=== PATIENT | male | born 1950 | race Caucasian/White ===

== ENCOUNTER 2018-05-04 11:07 | Inpatient (IN) | payer MEDICAID ==
--- NOTE | 2018-05-04 13:46 | ED PDOC ---
Arrival/HPI - General Chief Complaint: Upper Extremity Problem/Injury Time Seen by Provider: 05/04/18 11:31 Historian: Patient - History of Present Illness Narrative History of Present Illness (Text): 05/04/18 11:55 68 year old male, with past medical history of bilateral eye blindness since 14 years old, presents to the Emergency department complaining of left sided chest pain radiating to his left arm associated with shortness of breath since yesterday. Patient informs similar transient episodes for the past 2 months which resolved spontaneously. Patient states symptoms onset are usually with exertion and was brought on yesterday while walking. Reports no CP, L arm pain or SOB at this time. Patient denies any other associated somatic complaints. Patient denies any leg pain or swelling. Patient denies any fevers, chills, headache, dizziness, abdominal pain, nausea, vomiting, diarrhea, back pain, neck pain, or any other complaints. Patient admits to smoking cigarettes. PMD: NONE Time/Duration: 24 hours Symptom Onset: Gradual Symptom Course: Unchanged Quality: Aching Activities at Onset: Light Context: Walking Past Medical History - Provider Review Nursing Documentation Reviewed: Yes - Infectious Disease Hx of Infectious Diseases: None Family/Social History - Physician Review Nursing Documentation Reviewed: Yes Family/Social History: Unknown Family HX Allergies/Home Meds Allergies/Adverse Reactions: Allergies No Known Allergies Allergy (Verified 05/04/18 11:31) Home Medications: Home Meds Medication Instructions Recorded Confirmed No Known Home Med 05/04/18 05/04/18 Review of Systems - Physician Review All systems were reviewed & negative as marked: Yes - Review of Systems Constitutional: absent: Fevers Respiratory: SOB Cardiovascular: Chest Pain. absent: Edema Gastrointestinal: absent: Abdominal Pain, Diarrhea, Nausea, Vomiting Musculoskeletal: absent: Back Pain, Neck Pain Skin: absent: Rash Neurological: absent: Headache, Dizziness Psychiatric: absent: Anxiety, Depression Physical Exam Vital Signs Reviewed: Yes Vital Signs Temp Pulse Resp BP Pulse Ox 05/04/18 11:34 98.3 F 109 H 18 173/104 H 100 Temperature: Afebrile Blood Pressure: Hypertensive Pulse: Tachycardic Respiratory Rate: Normal Appearance: Positive for: Well-Appearing, Non-Toxic, Comfortable Pain Distress: None Mental Status: Positive for: Alert and Oriented X 3 - Systems Exam Head: Present: Atraumatic, Normocephalic Neck: Present: Normal Range of Motion Respiratory/Chest: Present: Clear to Auscultation, Good Air Exchange. No: Respiratory Distress, Accessory Muscle Use Cardiovascular: Present: Regular Rate and Rhythm, Normal S1, S2. No: Murmurs Abdomen: No: Tenderness, Distention, Peritoneal Signs Back: Present: Normal Inspection Upper Extremity: Present: Normal Inspection. No: Cyanosis, Edema Lower Extremity: Present: Normal Inspection. No: Edema Neurological: Present: GCS=15, Speech Normal Skin: Present: Warm, Dry, Normal Color. No: Rashes Psychiatric: Present: Alert, Oriented x 3, Normal Insight, Normal Concentration Medical Decision Making ED Course and Treatment: 05/04/18 11:55 Impression: 68 year old male presents to the Emergency department complaining of chest pain and shortness of breath. Plan: -- EKG -- Labs -- Chest X-ray -- Aspirin -- Reassess and disposition Prior Visits: Notes and results from previous visits were reviewed. Progress Notes: CXR : NAD, as read by LIZETH EKG: sinus tachycardia at 117 bpm, (-) acute ST changes, as read by LIZETH. Labs reviewed : K 3.4, trop 0.04, bnp 127 On reevaluation, patient reports no CP or SOB. Repeat VS P 100 BP 157/90 R 16 O2sat 98%RA. On exam, patient remains awake alert and oriented 3 in no acute distress. Diagnostic results d/w the patient and his family member. Notified of need for further observation for repeat troponin and cardiac consult, which the patient agrees to. 15:10 Case d/w Dr. Zaragoza, agrees with plan for observation to remote [facility] for CP r/o ACS. - RAD Interpretation Radiology Orders: 05/04/18 11:56 CHEST PORTABLE [RAD] Stat - Medication Orders Current Medication Orders: Discontinued Medications Aspirin (Aspirin Chewable) 81 mg PO STAT STA Stop: 05/04/18 11:56 Last Admin: 05/04/18 13:32 Dose: 81 mg - PA / MARBLEIZER / Resident Statement MD/DO has reviewed & agrees with the documentation as recorded. - Scribe Statement The provider has reviewed the documentation as recorded by the Scribe Aubrie Terry. All medical record entries made by the Scribe were at my direction and personally dictated by me. I have reviewed the chart and agree that the record accurately reflects my personal performance of the history, physical exam, medical decision making, and the department course for this patient. I have also personally directed, reviewed, and agree with the discharge instructions and disposition. Disposition/Present on Arrival - Present on Arrival Any Indicators Present on Arrival: No History of DVT/PE: No History of Uncontrolled Diabetes: No Urinary Catheter: No History of Decub. Ulcer: No History Surgical Site Infection Following: None - Disposition Have Diagnosis and Disposition been Completed?: Yes Diagnosis: Chest pain Disposition: HOSPITALIZED Disposition Time: 15:10 Patient Plan: Observation (to remote tele) Condition: STABLE
[2018-05-04 14:05] LABS: BASO # 0.03 K/mm3 (0.0-2.0); BASO % 0.7 % (0.0-3.0); EOS # 0.1 (0.0-0.7); EOS % 2.3 % (1.5-5.0); GRAN # 2.37 (1.4-6.5); GRAN % 54.6 % (50.0-68.0); HEMOGLOBIN 13.4 g/dL (14.0-18.0); LYMPH # 1.3 (1.2-3.4); LYMPH % 29.5 % (22.0-35.0); MEAN CELL VOLUME 70.7 fl (80.0-105.0); MEAN CORPUSCULAR HEMOGLOBIN 23.1 pg (25.0-35.0); MEAN CORPUSCULAR HGB CONC 32.6 g/dl (31.0-37.0); MEAN PLATELET VOLUME 10.4 fl (7.0-11.0); MONO # 0.6 (0.1-0.6); MONO % 12.9 % (1.0-6.0); RBC 5.81 10^6/uL (3.5-6.1); RED CELL DISTRIBUTION WIDTH 14.5 % (11.5-14.5); WHITE BLOOD COUNT 4.3 10^3/uL (4.5-11.0)
[2018-05-04 14:14] LABS: INR 1.01; PARTIAL THROMBOPLASTIN TIME 31.8 Seconds (25.1-36.5); PROTHROMBIN TIME 11.6 SECONDS (9.4-12.5)
[2018-05-04 14:18] LABS: ALB/GLOB RATIO 1.3 (1.1-1.8); ALBUMIN 4.4 g/dL (3.0-4.8); ALT/SGPT 53 U/L (7-56); AST/SGOT 40 U/L (17-59); BLOOD UREA NITROGEN 13 mg/dL (7-21); CALCIUM 9.4 mg/dL (8.4-10.5); GFR NON-AFRICAN AMERICAN > 60
--- NOTE | 2018-05-04 14:29 | RAD ---
Date of service: 05/04/2018 HISTORY: CP COMPARISON: No prior. FINDINGS: LUNGS: No active pulmonary disease. PLEURA: No significant pleural effusion identified, no pneumothorax apparent. CARDIOVASCULAR: No aortic atherosclerotic calcification present. Normal cardiac size. No pulmonary vascular congestion. OSSEOUS STRUCTURES: No significant abnormalities. VISUALIZED UPPER ABDOMEN: Normal. OTHER FINDINGS: None. IMPRESSION: No active disease.
[2018-05-04 14:32] LABS: B-TYPE NATRIURETIC PEPTIDE 127 pg/mL (0-450); TROPONIN I 0.04 ng/mL
[2018-05-04 14:34] LABS: CK-MB 2.8 ng/mL (0.0-3.6)
[2018-05-04] MEDS ORDERED: Potassium Chloride 40 mEq/30 ml LIQ UD PO STA (15:47)
[2018-05-04] MEDS ORDERED: Metoprolol 1 mg/ml Inj IVP PRN (16:40)
[2018-05-04] MEDS ORDERED: Levalbuterol 0.63 MG/3 ML Inhal Soln UD IH PRN (16:44)
--- NOTE | 2018-05-04 17:00 | CP.PCM.HP ---
<Armando Pacheco - Last Filed: 05/04/18 16:45> History of Present Illness - History of Present Illness History of Present Illness: Internal Medicine History and Physical (Hospitalist Service) CC: Unstable Angina HPI: Mr. Sanchez is a 68 year old kiswahili speaking male with a past medical history of bilateral blindness who presents with a chief complaint of chest pain. Patient's son at bedside to assist with HPI/ROS information. He reports that for the past 3-4 months the patient has been experiencing left sided chest pressure with radiation to the left arm with associated SOB after walking two blocks. This pressure is rated 5/10 in intensity and was self limited to 5-6 minutes with rest. Patient also reports that herbal teas and as needed omeprazole have mildly relieved the pain during this time but without lasting effect. Patient denies ever having experienced this in the past. Over the course of the past 5-6 days, however, the patient has been experiencing the pain while at rest as well and also reports that the pain is longer in duration without change in intensity or quality. Of note, patient has never been seen by a doctor, had any surgical procedures or ever been hospitalized in the past. He otherwise denies any recent travel (last flight 6 months ago), recent illness, fevers, chills, headache, neck pain/stiffness, dysphagia, palpitations, lower extremity edema, cough, s putum production, hemoptysis, wheezing, abdominal pain, dyspepsia, N/V/D/C, melena, hematochezia, changes in urine output, skin changes or any numbness/tingling/weakness of any extremity. In the ED, patient was found to have no active disease on chest x-ray but to have an indeterminate troponin at 0.04 as well as sinus tachycardia with non- specific ST-T segment changes on EKG. PMH: Bilateral complete blindness (patient reports he had "water in his eye" as a child that they couldn't take out) PSH: Denies Family History: Denies any cardiac history, sudden , CAD, HLD, or DM2 in his family Social History: Current some days smoker of 5-6 cigarettes/day with approximately 10 year smoking history; Denies any alcohol or illicit drug abuse; Splits his time between [place] and [place] every 6 months with next flight return to [place] on 05/13/18; Independent with ADL's Allergies: NKDA Home Medications: None Present on Admission - Present on Admission Any Indicators Present on Admission: No Review of Systems - Review of Systems Review of Systems: As stated in HPI, otherwise negative Past Patient History - Infectious Disease Hx of Infectious Diseases: None - Past Social History Smoking Status: Never Smoked - CARDIAC Hx Cardiac Disorders: No - PULMONARY Hx Respiratory Disorders: No - NEUROLOGICAL Hx Neurological Disorder: No - HEENT Hx HEENT Problems: Yes Hx Blind: Yes - RENAL Hx Chronic Kidney Disease: No - ENDOCRINE/METABOLIC Hx Endocrine Disorders: No - HEMATOLOGICAL/ONCOLOGICAL Hx Blood Disorders: No - MUSCULOSKELETAL/RHEUMATOLOGICAL Hx Musculoskeletal Disorders: No - GASTROINTESTINAL Hx Gastrointestinal Disorders: No - PSYCHIATRIC Hx Psychophysiologic Disorder: No Hx Substance Use: No Meds Allergies/Adverse Reactions: Allergies Allergy/AdvReac Type Severity Reaction Status Date / Time No Known Allergies Allergy Verified 05/04/18 11:31 Physical Exam - Constitutional Appears: Non-toxic, No Acute Distress - Head Exam Head Exam: ATRAUMATIC, NORMOCEPHALIC - Eye Exam Eye Exam: absent: EOMI, Normal appearance, PERRL Pupil Exam: absent: NORMAL ACCOMODATION, PERRL Additional comments: Noted history of blindness; EOM testing unobtainable; Superior gaze with only sclera visible at rest - ENT Exam ENT Exam: Mucous Membranes Moist, Normal External Ear Exam, Normal Oropharynx - Neck Exam Neck exam: Positive for: Full Rom, Normal Inspection. Negative for: Lymphadenopathy, Meningismus, Tenderness, Thyromegaly - Respiratory Exam Respiratory Exam: Clear to Auscultation Bilateral, NORMAL BREATHING PATTERN. absent: Accessory Muscle Use, Decreased Breath Sounds, Rales, Rhonchi, Wheezes, Respiratory Distress - Cardiovascular Exam Cardiovascular Exam: Tachycardia, REGULAR RHYTHM, +S1, +S2. absent: Bradycardia, Clicks, Diastolic murmur, Gallop, Irregular Rhythm, JVD, RRR, Rubs, +S4, Systolic Murmur - GI/Abdominal Exam GI & Abdominal Exam: Normal Bowel Sounds, Soft. absent: Tenderness - Extremities Exam Extremities exam: Positive for: full ROM, normal capillary refill, normal inspection, pedal edema (Trace pitting edema bilaterally), pedal pulses present. Negative for: calf tenderness, joint swelling, tenderness - Neurological Exam Neurological exam: Alert, Oriented x3 - Psychiatric Exam Psychiatric exam: Normal Affect, Normal Mood - Skin Skin Exam: Dry, Intact, Warm Results - Vital Signs Recent Vital Signs: Last Vital Signs Temp 98.3 F 05/04/18 11:34 Pulse 100 H 05/04/18 13:58 Resp 16 05/04/18 13:58 BP 157/90 H 05/04/18 13:58 Pulse Ox 98 05/04/18 13:58 - Labs Result Diagrams: 05/04/18 13:30 05/04/18 13:30 Labs: Laboratory Results - last 24 hr 05/04/18 05/04/18 05/04/18 13:30 13:30 13:30 WBC 4.3 L RBC 5.81 Hgb 13.4 L Hct 41.1 L MCV 70.7 L MCH 23.1 L MCHC 32.6 RDW 14.5 Plt Count 179 MPV 10.4 Gran % 54.6 Lymph % (Auto) 29.5 [place] % (Auto) 12.9 H Eos % (Auto) 2.3 Baso % (Auto) 0.7 Gran # 2.37 Lymph # (Auto) 1.3 [place] # (Auto) 0.6 Eos # (Auto) 0.1 Baso # (Auto) 0.03 PT 11.6 INR 1.01 APTT 31.8 Sodium 140 Potassium 3.4 L Chloride 104 Carbon Dioxide 26 Anion Gap 14 BUN 13 Creatinine 0.9 Est GFR ( Amer) > 60 Est GFR (Non-Af Amer) > 60 Random Glucose 120 H Calcium 9.4 Magnesium 2.1 Total Bilirubin 0.3 AST 40 ALT 53 Alkaline Phosphatase 85 Lactate Dehydrogenase 522 Total Creatine Kinase 393 H CK-MB (CK-2) 2.8 CK-MB (CK-2) % Cancelled Troponin I 0.04 NT-Pro-B Natriuret Pep 127 Total Protein 7.8 Albumin 4.4 Globulin 3.4 Albumin/Globulin Ratio 1.3 - EKG Data EKG Interpreted by: Myself EKG shows normal: Sinus rhythm Rate: Tachycardia Assessment & Plan - Assessment and Plan (Free Text) Assessment: 68 year old kiswahili speaking male with a past medical history of bilateral blindness who presents with a chief complaint of chest pain. In the ED, patient was found to have no active disease on chest x-ray but to have an indeterminate troponin at 0.04 as well as sinus tachycardia with non-specific ST-T segment changes on EKG. He will be admitted to remote telemetry for observation, cardiac risk stratification and streets and buildings decorator evaluation. Plan: 1. Unstable Angina -Chest X-ray showed no active disease -EKG showed sinus tachycardia with non-specific ST segment changes -Initial troponin indeterminate at 0.04; Q8 serial cardiac iso's pending -Given ASA 81mg in ED -Ibuprofen 400mg PO Q6 PRN for pain control -Lipid panel and Hemoglobin A1c for risk stratification pending -Cardiology consulted, all recommendations appreciated 2. HTN -Lopressor 5mg IVP Q6 PRN for systolic BP greater than 160mmHg 3. Hypokalemia -Potassium at 3.4 in ED -Replenished with KCl 40meq PO -Continue to monitor with daily BMP's GI Prophylaxis: Protonix DVT Prophylaxis: Lovenox Diet: Heart Healthy Code Status: Full code Status: Observation Location: Remote Telemetry Patient seen and case discussed with attending, Dr. Zaragoza. Armando Pacheco PGY2 - Date & Time Date: 05/04/18 Time: 17:00 <Larry Zaragoza - Last Filed: 05/04/18 18:07> Results - Vital Signs Recent Vital Signs: Last Vital Signs Temp 98.3 F 05/04/18 11:34 Pulse 100 H 05/04/18 13:58 Resp 16 05/04/18 13:58 BP 157/90 H 05/04/18 13:58 Pulse Ox 98 05/04/18 13:58 - Labs Result Diagrams: 05/04/18 13:30 05/04/18 13:30 Labs: Laboratory Results - last 24 hr 05/04/18 05/04/18 05/04/18 13:30 13:30 13:30 WBC 4.3 L RBC 5.81 Hgb 13.4 L Hct 41.1 L MCV 70.7 L MCH 23.1 L MCHC 32.6 RDW 14.5 Plt Count 179 MPV 10.4 Gran % 54.6 Lymph % (Auto) 29.5 [place] % (Auto) 12.9 H Eos % (Auto) 2.3 Baso % (Auto) 0.7 Gran # 2.37 Lymph # (Auto) 1.3 [place] # (Auto) 0.6 Eos # (Auto) 0.1 Baso # (Auto) 0.03 PT 11.6 INR 1.01 APTT 31.8 Sodium 140 Potassium 3.4 L Chloride 104 Carbon Dioxide 26 Anion Gap 14 BUN 13 Creatinine 0.9 Est GFR ( Amer) > 60 Est GFR (Non-Af Amer) > 60 Random Glucose 120 H Calcium 9.4 Magnesium 2.1 Total Bilirubin 0.3 AST 40 ALT 53 Alkaline Phosphatase 85 Lactate Dehydrogenase 522 Total Creatine Kinase 393 H CK-MB (CK-2) 2.8 CK-MB (CK-2) % Cancelled Troponin I 0.04 NT-Pro-B Natriuret Pep 127 Total Protein 7.8 Albumin 4.4 Globulin 3.4 Albumin/Globulin Ratio 1.3 Attending/Attestation - Attestation I have personally seen and examined this patient.: Yes I have fully participated in the care of the patient.: Yes I have reviewed all pertinent clinical information: Yes Notes (Text): 05/04/18 18:01 68 year old male with past medical history of bilateral blindness and active tobaccco use who presents with complaint of left sided chest pain. In ER he was found to be hypertensive and tachycardic. Initial troponin is indeterminate at 0.04. EKG shows sinus tachycardia with nonspecific ST changes. Will admit to telemetry unit to rule out ACS. Serial cardiac enzymes are ordered. Cardiology evaluation is requested. Lipid panel ordered for AM. Will start aspirin and lopressor. Will replete and repeat potassium. Counselled on smoking cessation. Larry Zaragoza MD Hospitalist.
--- NOTE | 2018-05-04 17:09 | CARD ---
APPROVED REPORT Date of service: 05/04/2018 EKG Measurement Heart [id number] <Conclusion> Sinus tachycardia Nonspecific ST abnormality Abnormal ECG
[2018-05-04 21:11] VITALS: BMI 25.7
[2018-05-04 22:01] LABS: TROPONIN I 0.05 ng/mL
[2018-05-04 22:02] LABS: CK-MB 2.7 ng/mL (0.0-3.6)
[2018-05-05 04:37] LABS: HEMOGLOBIN 13.1 g/dL (14.0-18.0); MEAN CELL VOLUME 70.9 fl (80.0-105.0); MEAN CORPUSCULAR HEMOGLOBIN 23.3 pg (25.0-35.0); MEAN CORPUSCULAR HGB CONC 32.8 g/dl (31.0-37.0); MEAN PLATELET VOLUME 10.6 fl (7.0-11.0); RBC 5.63 10^6/uL (3.5-6.1); RED CELL DISTRIBUTION WIDTH 14.7 % (11.5-14.5); WHITE BLOOD COUNT 3.8 10^3/uL (4.5-11.0)
[2018-05-05 04:45] LABS: LDL CHOLESTEROL 145 mg/dL (0-129)
[2018-05-05 04:46] LABS: TROPONIN I 0.06 ng/mL
[2018-05-05 04:48] LABS: BLOOD UREA NITROGEN 15 mg/dL (7-21); CALCIUM 8.9 mg/dL (8.4-10.5); GFR NON-AFRICAN AMERICAN > 60; HDL CHOLESTEROL 30 mg/dL (29-60)
[2018-05-05 04:56] LABS: CK-MB 2.6 ng/mL (0.0-3.6)
[2018-05-05] MEDS: Pantoprazole 40 mg EC Tab PO SCH (05:13)
[2018-05-05] MEDS ORDERED: Enoxaparin 40 mg Syringe SC SCH (10:00)
--- NOTE | 2018-05-05 16:08 | CP.PCM.PN ---
<Lamont Hahn - Last Filed: 05/05/18 16:46> Subjective - Date & Time of Evaluation Date of Evaluation: 05/05/18 Time of Evaluation: 07:30 - Subjective Subjective: PGY-1 Medicine Progress Note for Dr. Zaragoza Patient seen and examined at bedside this AM, resting comfortably and in no acute distress. No acute overnight events reported. Patient does not complain of chest pain this morning, no palpitations, no headaches, no dizziness, no changes in vision, no n/v/d/c. ROS otherwise negative. Objective - Vital Signs/Intake and Output Vital Signs (last 24 hours): Temp Pulse Resp BP Pulse Ox 97.4 F L 92 H 20 156/98 H 97 05/05/18 08:40 05/05/18 14:00 05/05/18 08:40 05/05/18 08:48 05/05/18 08:40 - Medications Medications: Current Medications Aspirin (Ecotrin) 81 mg PO 0800 [facility] Last Admin: 05/05/18 08:48 Dose: 81 mg Atorvastatin Calcium (Lipitor) 10 mg PO DIN [facility] Clopidogrel Bisulfate (Plavix) 75 mg PO DAILY [facility] Stop: 05/06/18 12:00 Enoxaparin Sodium (Lovenox) 40 mg SC DAILY [facility]; Protocol Last Admin: 05/05/18 09:09 Dose: 40 mg Ibuprofen (Motrin Tab) 400 mg PO Q6H PRN PRN Reason: Pain, Mild (1-3) Metoprolol Tartrate (Lopressor) 5 mg IVP Q6 PRN PRN Reason: Systolic Blood Pressure Metoprolol Tartrate (Lopressor) 25 mg PO 0800,1800 [facility] Last Admin: 05/05/18 08:48 Dose: 25 mg Pantoprazole Sodium (Protonix Ec Tab) 40 mg PO 0600 [facility] Last Admin: 05/05/18 05:13 Dose: 40 mg - Labs Labs: 05/05/18 04:05 05/05/18 04:05 PT 11.6 SECONDS (9.4-12.5) 05/04/18 13:30 INR 1.01 05/04/18 13:30 APTT 31.8 Seconds (25.1-36.5) 05/04/18 13:30 - Constitutional Appears: Non-toxic, No Acute Distress - Head Exam Head Exam: ATRAUMATIC, NORMAL INSPECTION, NORMOCEPHALIC - Eye Exam Additional comments: patient has b/l eye blindness - ENT Exam ENT Exam: Mucous Membranes Moist, Normal Exam - Neck Exam Neck Exam: Full ROM, Normal Inspection - Respiratory Exam Respiratory Exam: Clear to Ausculation Bilateral, NORMAL BREATHING PATTERN. absent: Accessory Muscle Use, Rales, Rhonchi, Wheezes, Respiratory Distress, Stridor - Cardiovascular Exam Cardiovascular Exam: REGULAR RHYTHM, +S1, +S2 - GI/Abdominal Exam GI & Abdominal Exam: Soft, Normal Bowel Sounds. absent: Distended, Firm, Guarding, Rigid, Tenderness, Organomegaly, Rebound - Extremities Exam Extremities Exam: Full ROM, Normal Capillary Refill, Normal Inspection. absent: Calf Tenderness, Pedal Edema, Tenderness - Back Exam Back Exam: NORMAL INSPECTION - Neurological Exam Neurological Exam: Alert, Awake, Oriented x3 - Psychiatric Exam Psychiatric exam: Normal Affect, Normal Mood - Skin Skin Exam: Dry, Intact, Normal Color, Warm Assessment and Plan - Assessment and Plan (Free Text) Assessment: 68 year old turkish speaking male with a past medical history of bilateral blindness who presents with a chief complaint of chest pain. In the ED, patient was found to have no active disease on chest x-ray but to have an indeterminate troponin at 0.04 as well as sinus tachycardia with non-specific ST-T segment changes on EKG. Admitted for observation, cardiac risk stratification and psych np evaluation. Plan: Unstable Angina -trops x3 negative -CXR: no active disease -EKG on admission: sinus tachycardia with non-specific ST segment changes -A1C: 6.2 -Cardiology recs (Dr. Paredes) appreciated -Plavix 75 mg PO daily -NPO past midnight for possible procedure -Medications -ASA 81 mg PO daily -Lopressor 25 mg PO BID, 5 mg IVP q6 prn HLD -Lipid panel elevated: TG 255, chol 218, LDL 145 -lipitor 10 mg PO daily HTN -Lopressor 5mg IVP Q6 PRN for systolic BP greater than 160mmHg PPx, Diet, Disposition -GI: Protonix -DVT: Lovenox -Diet: NPO past midnight for possible procedure Case discussed with Dr. Mila Hahn DO , PGY-1 <Larry Zaragoza - Last Filed: 05/05/18 17:43> Objective - Vital Signs/Intake and Output Vital Signs (last 24 hours): Temp Pulse Resp BP Pulse Ox 98 F 91 H 20 150/104 H 98 05/05/18 16:43 05/05/18 16:43 05/05/18 16:43 05/05/18 16:43 05/05/18 16:43 - Medications Medications: Current Medications Aspirin (Ecotrin) 81 mg PO 0800 [facility] Last Admin: 05/05/18 08:48 Dose: 81 mg Atorvastatin Calcium (Lipitor) 10 mg PO DIN [facility] Clopidogrel Bisulfate (Plavix) 75 mg PO DAILY [facility] Stop: 05/06/18 12:00 Enoxaparin Sodium (Lovenox) 40 mg SC DAILY [facility]; Protocol Last Admin: 05/05/18 09:09 Dose: 40 mg Ibuprofen (Motrin Tab) 400 mg PO Q6H PRN PRN Reason: Pain, Mild (1-3) Metoprolol Tartrate (Lopressor) 5 mg IVP Q6 PRN PRN Reason: Systolic Blood Pressure Metoprolol Tartrate (Lopressor) 25 mg PO 0800,1800 [facility] Last Admin: 05/05/18 08:48 Dose: 25 mg Pantoprazole Sodium (Protonix Ec Tab) 40 mg PO 0600 [facility] Last Admin: 05/05/18 05:13 Dose: 40 mg - Labs Labs: 05/05/18 04:05 05/05/18 04:05 PT 11.6 SECONDS (9.4-12.5) 05/04/18 13:30 INR 1.01 05/04/18 13:30 APTT 31.8 Seconds (25.1-36.5) 05/04/18 13:30 Attending/Attestation - Attestation I have personally seen and examined this patient.: Yes I have fully participated in the care of the patient.: Yes I have reviewed all pertinent clinical information, including history, physical exam and plan: Yes Notes (Text): 05/05/18 17:41 68 year old male with past medical history of bilateral blindness and active tobaccco use who presented with complaint of left sided chest pain. Serial cardiac enzymes have been indeterminate. EKG showed sinus tachycardia with nonspecific ST changes. Patient is on aspirin, plavix, statin and lopressor. He was seen by cardiology this afternoon and plan is for possible cardiac cath tomorrow. Counselled on smoking cessation. Son is at bedside and questions were answered. Larry Zaragoza MD Hospitalist.
--- NOTE | 2018-05-05 20:04 | CON ---
DATE: 05/05/2018 CARDIOLOGY CONSULTATION HISTORY OF PRESENT ILLNESS: The patient is a 68-year-old male from [place], who presents with several weeks of exertional angina with shortness of breath. The patient is free of cardiac history; however, he is noted to be hypertensive and he is on no medications. In addition, the patient is an excessive smoker and has been smoking for a long time. He denies diabetes mellitus. Denies other medications. PAST MEDICAL HISTORY: Notable for has been blind for a long time. REVIEW OF SYSTEMS: A 14-point review of systems is reviewed in detail. His symptoms are exertional angina and shortness of breath without edema. No previous peptic ulcer disease. No bleeding disorder. No edema in the lower extremities. PHYSICAL EXAMINATION: VITAL SIGNS: Blood pressure 156/98 and heart rates in the 90s. NECK: Negative JVD. LUNGS: Without rales. HEART: S1 and S2. EXTREMITIES: Without edema. LABORATORY DATA: EKG shows normal sinus rhythm with nonspecific ST-T changes. Hemoglobin of 13.1. Chemistries, troponins are 0.05 and 0.06. The glucose is 111. IMPRESSION: 1. Non-ST segment elevation myocardial infarction. 2. Unstable angina. 3. Chronic obstructive pulmonary disease. 4. Dyspnea. 5. Hypertension. PLAN: Given these findings, I had extensive discussion with the patient's family as well as the patient about a high probability for CAD. The patient is already on heparin. We will start aspirin, load with Plavix and schedule for cardiac catheterization in the morning. Risks and benefits were discussed in detail. They are agreeable. Norman Paredes MD
[2018-05-06] MEDS: Pantoprazole 40 mg EC Tab PO SCH (05:24)
[2018-05-06] MEDS ORDERED: Nitroglycerin 2% Ointment Foilpak UD TOP ONE (05:49)
[2018-05-06 06:57] LABS: HEMOGLOBIN 14.1 g/dL (14.0-18.0); MEAN CELL VOLUME 70.4 fl (80.0-105.0); MEAN CORPUSCULAR HEMOGLOBIN 22.8 pg (25.0-35.0); MEAN CORPUSCULAR HGB CONC 32.3 g/dl (31.0-37.0); MEAN PLATELET VOLUME 10.5 fl (7.0-11.0); RBC 6.19 10^6/uL (3.5-6.1); RED CELL DISTRIBUTION WIDTH 14.6 % (11.5-14.5); WHITE BLOOD COUNT 4.9 10^3/uL (4.5-11.0)
[2018-05-06 07:21] VITALS: O2SAT 100
[2018-05-06 07:32] LABS: BLOOD UREA NITROGEN 14 mg/dL (7-21); CALCIUM 9.3 mg/dL (8.4-10.5); GFR NON-AFRICAN AMERICAN > 60
[2018-05-06] MEDS ORDERED: Iodixanol 320 MG/ML 100 ML BOTTLE IV ONE (11:46)
[2018-05-06] MEDS ORDERED: Iodixanol 320 MG/ML 200 ML BOTTLE IV ONE (11:46)
[2018-05-06] MEDS ORDERED: Iohexol 350mgl/ml 50 ML ONE (11:46)
[2018-05-06] MEDS ORDERED: Lidocaine 2% Inj (20ml) ONE (11:46)
[2018-05-06] MEDS ORDERED: Midazolam 2 MG/2 ML VIAL ONE ×2 (12:58→13:03)
[2018-05-06] MEDS ORDERED: Eptifibatide 20 mg/10mL Inj IVP ONE (13:33)
[2018-05-06] MEDS ORDERED: Sodium Chloride 0.9% 1,000 ML IV SCH (14:30)
--- NOTE | 2018-05-06 15:17 | CARDCATH ---
PROCEDURE DATE: 05/06/2018 CARDIAC CATHETERIZATION AND PTCA HISTORY: The patient is a 68-year-old male, who presents with a non-STEMI. The patient is from [place]. He suffers from questionable hypertension, but is a long time smoker. Because of his high probability for CAD, cardiac catheterization was recommended. PROCEDURE: Left heart catheterization with coronary arteriography and left ventriculogram followed by PTCA and stent of two lesions in the LAD. The right femoral artery was cannulated with a 6-Spanish sheath. There were no complications. I performed moderate sedation, which included the presence of an independent trained observer that assisted in monitoring the patient's level of consciousness and physiologic status. After administration of Versed and fentanyl, my intra service time was 45 minutes. The findings on catheterization revealed a left ventricle that contracted normally. Estimated ejection fraction of 60%. His coronary anatomy revealed a right dominant circulation. The RCA revealed diffuse atherosclerosis without critical lesions. The left main artery revealed a 40% stenosis in its proximal portion. The LAD revealed a 99.9% stenosis in the proximal LAD followed by 70% stenosis in the midportion. The circumflex artery revealed atherosclerosis without critical lesions. The patient was started on intravenous Angiomax. PRU measurement found the patient to be resistant to Plavix and the patient was given 2 doses of intravenous Integrilin. A guiding catheter is placed in the ostium of the left main artery. An 0.014 ATW wire was used to cross the LAD critical lesion past the second LAD lesion. A second wire was used to cross the lesion and into the second diagonal vessel. A 2 balloon was utilized to predilate the lesion. This was followed by implantation of a 3.5 x 15 mm drug-eluting stent in the proximal LAD lesion at 14 atmospheres of pressure. A second 2 stent was placed in the LAD past the second diagonal vessel. A second wire was used to dilate the second diagonal lesion. In addition, the wire was used to cross the first diagonal vessel at the place of the first stent and with scientologist of flow into the diagonal vessel. Repeat coronary arteriography revealed an excellent result with no residual stenosis. Angio-Seal was used to close the femoral artery site. The patient tolerated the procedure well. In summary, the procedure was successful PTCA and stent of a 99% proximal LAD stenosis. PTCA and stent of a mid LAD stenosis both with drug-eluting stents. PCI of the second diagonal and first diagonal vessels. Given these findings, the patient will need to remain on aspirin indefinitely and Effient for at least a year and undergo a strict cardiac risk reduction program. I have discussed with the patient's family about his need to stop smoking. Norman Paredes MD
--- NOTE | 2018-05-06 17:50 | CARD ---
APPROVED REPORT Date of service: 05/06/2018 EKG Measurement Heart [id number] <Conclusion> Normal sinus rhythm Normal ECG
--- NOTE | 2018-05-06 20:03 | CP.PCM.PN ---
<Hardik Richard - Last Filed: 05/06/18 20:00> Subjective - Date & Time of Evaluation Date of Evaluation: 05/06/18 Time of Evaluation: 07:00 - Subjective Subjective: Hardik Richard PGY1 Medicine Progress Note for Dr. Zaragoza Patient was seen and examined at bedside this morning. No acute overnight events. Vital signs are stable. Patient does not complain of blurry or changes in vision, cp, shortness of breath, abdominal pain, n/v/d. Patient going for cardiac cath after interview. A full 12 point ROS was conducted and unremarkable except as stated above Objective - Vital Signs/Intake and Output Vital Signs (last 24 hours): Temp Pulse Resp BP Pulse Ox 97.4 F L 82 18 136/92 H 100 05/06/18 17:49 05/06/18 18:37 05/06/18 18:37 05/06/18 18:37 05/06/18 06:00 Intake and Output: 05/06/18 05/07/18 18:59 06:59 Intake Total 0 550 Output Total 0 Balance 0 550 - Medications Medications: Current Medications Aspirin (Ecotrin) 81 mg PO 0800 [facility] Last Admin: 05/06/18 08:56 Dose: 81 mg Atorvastatin Calcium (Lipitor) 40 mg PO DIN [facility] Last Admin: 05/06/18 18:34 Dose: 40 mg Metoprolol Tartrate (Lopressor) 25 mg PO 0800,1800 [facility] Last Admin: 05/06/18 18:34 Dose: 25 mg Prasugrel (Effient) 10 mg PO DAILY [facility] - Labs Labs: 05/06/18 05:20 05/06/18 05:20 PT 11.6 SECONDS (9.4-12.5) 05/04/18 13:30 INR 1.01 05/04/18 13:30 APTT 31.8 Seconds (25.1-36.5) 05/04/18 13:30 - Constitutional Appears: Well - Head Exam Head Exam: ATRAUMATIC, NORMOCEPHALIC - Neck Exam Neck Exam: Full ROM, Normal Inspection. absent: Lymphadenopathy - Respiratory Exam Respiratory Exam: Clear to Ausculation Bilateral, NORMAL BREATHING PATTERN. absent: Rales, Rhonchi, Wheezes - Cardiovascular Exam Cardiovascular Exam: REGULAR RHYTHM, +S1, +S2. absent: Murmur - GI/Abdominal Exam GI & Abdominal Exam: Soft, Normal Bowel Sounds. absent: Tenderness - Neurological Exam Neurological Exam: Alert, Awake, Oriented x3 Neuro motor strength exam: Left Upper Extremity: 5, Right Upper Extremity: 5, Left Lower Extremity: 5, Right Lower Extremity: 5 - Skin Skin Exam: Dry, Intact, Normal Color, Warm Assessment and Plan - Assessment and Plan (Free Text) Assessment: 68 year old danish speaking male with a past medical history of bilateral blindness who presents with a chief complaint of chest pain. In the ED, patient was found to have no active disease on chest x-ray but to have an indeterminate troponin at 0.04 as well as sinus tachycardia with non-specific ST-T segment changes on EKG. Cardiology was consulted. Patient went for cardiac cath today. Plan: Newly Diagnosed CAD - s/p cardiac cath with stent placement - cardiac cath (05/06): showed 99% proximal LAD stenosis, stent placed. Stent also placed in mid-LAD. Drug eluting stents. - Cardiology recs appreciated. Aspirin 81 mg daily and Effient 10 mg daily for at least 1 year (Dual anticoagulation for GRACIELA). - Normal postcath protocol - monitor vital signs, monitor for bleed at cath site, monitor distal pulses - Counseled on smoking cessation - HHD - trops x3 negative - CXR: no active disease - EKG on admission: sinus tachycardia with non-specific ST segment changes - A1C: 6.2 HLD - Lipitor 40mg - Lipid panel elevated: TG 255, chol 218, LDL 145 HTN -Lopressor 25mg IVP BID Dispo: Patient will be monitored on tele s/p cardiac cath indicating newly diagnosed CAD. Case was discussed and reviewed with Attending Physician, Dr. Zaragoza. <Larry Zaragoza - Last Filed: 05/07/18 06:36> Objective - Vital Signs/Intake and Output Vital Signs (last 24 hours): Temp Pulse Resp BP Pulse Ox 97.9 F 82 18 134/74 100 05/07/18 06:00 05/07/18 06:00 05/07/18 06:00 05/07/18 06:00 05/06/18 06:00 Intake and Output: 05/06/18 05/07/18 18:59 06:59 Intake Total 0 550 Output Total 0 700 Balance 0 -150 - Medications Medications: Current Medications Aspirin (Ecotrin) 81 mg PO 0800 [facility] Last Admin: 05/06/18 08:56 Dose: 81 mg Atorvastatin Calcium (Lipitor) 40 mg PO DIN [facility] Last Admin: 05/06/18 18:34 Dose: 40 mg Metoprolol Tartrate (Lopressor) 25 mg PO 0800,1800 [facility] Last Admin: 05/06/18 18:34 Dose: 25 mg Prasugrel (Effient) 10 mg PO DAILY [facility] - Labs Labs: 05/06/18 05:20 05/06/18 05:20 PT 11.6 SECONDS (9.4-12.5) 05/04/18 13:30 INR 1.01 05/04/18 13:30 APTT 31.8 Seconds (25.1-36.5) 05/04/18 13:30 Attending/Attestation - Attestation I have personally seen and examined this patient.: Yes I have fully participated in the care of the patient.: Yes I have reviewed all pertinent clinical information, including history, physical exam and plan: Yes Notes (Text): 05/06/18 68 year old male with past medical history of bilateral blindness and active tobaccco use who presented with complaint of left sided chest pain. Serial cardiac enzymes have been indeterminate. EKG showed sinus tachycardia with nonspecific ST changes. Patient was started on aspirin, plavix, statin and lopressor. Cardiology evaluation was appreciated and patient underwent cardiac cath today with findings of 99% stenosis of LAD; 2 GARCIELA were placed and patient is started on effient. Case was discussed with Dr. Paredes. Will observe on telemetry unit tonight. Possible d/c plan tomorrow if stable. Counselled on smoking cessation. Larry Zaragoza MD Hospitalist.
[2018-05-07 06:22] VITALS: TEMP 97.9
[2018-05-07 07:21] LABS: BASO # 0.01 K/mm3 (0.0-2.0); BASO % 0.2 % (0.0-3.0); EOS # 0.2 (0.0-0.7); EOS % 2.7 % (1.5-5.0); GRAN # 3.25 (1.4-6.5); GRAN % 58.4 % (50.0-68.0); HEMOGLOBIN 12.9 g/dL (14.0-18.0); LYMPH # 1.5 (1.2-3.4); LYMPH % 26.3 % (22.0-35.0); MEAN CELL VOLUME 70.6 fl (80.0-105.0); MEAN CORPUSCULAR HEMOGLOBIN 22.7 pg (25.0-35.0); MEAN CORPUSCULAR HGB CONC 32.2 g/dl (31.0-37.0); MEAN PLATELET VOLUME 10.4 fl (7.0-11.0); MONO # 0.7 (0.1-0.6); MONO % 12.4 % (1.0-6.0); RBC 5.68 10^6/uL (3.5-6.1); RED CELL DISTRIBUTION WIDTH 14.6 % (11.5-14.5); WHITE BLOOD COUNT 5.6 10^3/uL (4.5-11.0)
[2018-05-07 07:41] LABS: BLOOD UREA NITROGEN 19 mg/dL (7-21); CALCIUM 9.1 mg/dL (8.4-10.5); GFR NON-AFRICAN AMERICAN > 60
--- NOTE | 2018-05-07 11:07 | PN ---
DATE: 05/07/2018 CARDIOLOGY FOLLOWUP SUBJECTIVE: The patient is chest pain free. PHYSICAL EXAMINATION: VITAL SIGNS: Stable. NECK: Negative JVD. LUNGS: Without rales. HEART: Reveals S1 and S2. EXTREMITIES: Without edema. LABORATORY DATA: Unremarkable. IMPRESSION: 1. Stable post percutaneous transluminal coronary angioplasty and stent of 99% left anterior descending. 2. Plavix resistance. 3. Chronic obstructive pulmonary disease. 4. Hypercholesterolemia. PLAN: Given these findings, the patient is stable for discharge. He will need to be on Effient for at least a year as well as baby aspirin and undergo a cardiac risk reduction program. Norman Paredes MD
[2018-05-07 11:58] VITALS: BP 129/77; PULSE 80; RESP 20
--- NOTE | 2018-05-07 15:00 | CP.PCM.DIS ---
<Lamont Hahn - Last Filed: 05/07/18 14:57> Provider - Provider Date of Admission: 05/05/18 15:56 Attending physician: Larry Zaragoza MD Time Spent in preparation of Discharge (in minutes): 40 Hospital Course - Lab Results Lab Results: Most Recent Lab Values WBC 5.6 10^3/uL (4.5-11.0) 05/07/18 07:00 RBC 5.68 10^6/uL (3.5-6.1) 05/07/18 07:00 Hgb 12.9 g/dL (14.0-18.0) L 05/07/18 07:00 Hct 40.1 % (42.0-52.0) L 05/07/18 07:00 MCV 70.6 fl (80.0-105.0) L 05/07/18 07:00 MCH 22.7 pg (25.0-35.0) L 05/07/18 07:00 MCHC 32.2 g/dl (31.0-37.0) 05/07/18 07:00 RDW 14.6 % (11.5-14.5) H 05/07/18 07:00 Plt Count 160 10^3/uL (120.0-450.0) 05/07/18 07:00 MPV 10.4 fl (7.0-11.0) 05/07/18 07:00 Gran % 58.4 % (50.0-68.0) 05/07/18 07:00 Lymph % (Auto) 26.3 % (22.0-35.0) 05/07/18 07:00 Marshall % (Auto) 12.4 % (1.0-6.0) H 05/07/18 07:00 Eos % (Auto) 2.7 % (1.5-5.0) 05/07/18 07:00 Baso % (Auto) 0.2 % (0.0-3.0) 05/07/18 07:00 Gran # 3.25 (1.4-6.5) 05/07/18 07:00 Lymph # (Auto) 1.5 (1.2-3.4) 05/07/18 07:00 Marshall # (Auto) 0.7 (0.1-0.6) H 05/07/18 07:00 Eos # (Auto) 0.2 (0.0-0.7) 05/07/18 07:00 Baso # (Auto) 0.01 K/mm3 (0.0-2.0) 05/07/18 07:00 PT 11.6 SECONDS (9.4-12.5) 05/04/18 13:30 INR 1.01 05/04/18 13:30 APTT 31.8 Seconds (25.1-36.5) 05/04/18 13:30 Sodium 136 mmol/L (132-148) 05/07/18 07:00 Potassium 4.1 mmol/L (3.6-5.0) 05/07/18 07:00 Chloride 105 mmol/L (98-107) 05/07/18 07:00 Carbon Dioxide 23 mmol/L (21-33) 05/07/18 07:00 Anion Gap 12 (10-20) 05/07/18 07:00 BUN 19 mg/dL (7-21) 05/07/18 07:00 Creatinine 1.0 mg/dl (0.8-1.5) 05/07/18 07:00 Est GFR ( Amer) > 60 05/07/18 07:00 Est GFR (Non-Af Amer) > 60 05/07/18 07:00 POC Glucose (mg/dL) 128 mg/dL (65-110) H 05/07/18 11:38 Random Glucose 111 mg/dL (70-110) H 05/07/18 07:00 Hemoglobin A1c 6.2 % (4.2-6.5) 05/04/18 21:25 Calcium 9.1 mg/dL (8.4-10.5) 05/07/18 07:00 Magnesium 2.1 mg/dL (1.7-2.2) 05/04/18 13:30 Total Bilirubin 0.3 mg/dL (0.2-1.3) 05/04/18 13:30 AST 40 U/L (17-59) 05/04/18 13:30 ALT 53 U/L (7-56) 05/04/18 13:30 Alkaline Phosphatase 85 U/L (38-126) 05/04/18 13:30 Lactate Dehydrogenase 518 U/L (333-699) 05/05/18 04:05 Total Creatine Kinase 751 U/L (35-230) H 05/05/18 04:05 CK-MB (CK-2) 2.6 ng/mL (0.0-3.6) 05/05/18 04:05 CK-MB (CK-2) % Cancelled 05/04/18 13:30 Troponin I 0.06 ng/mL 05/05/18 04:05 NT-Pro-B Natriuret Pep 127 pg/mL (0-450) 05/04/18 13:30 Total Protein 7.8 g/dL (5.8-8.3) 05/04/18 13:30 Albumin 4.4 g/dL (3.0-4.8) 05/04/18 13:30 Globulin 3.4 gm/dL 05/04/18 13:30 Albumin/Globulin Ratio 1.3 (1.1-1.8) 05/04/18 13:30 Triglycerides 255 mg/dL (35-160) H 05/05/18 04:05 Cholesterol 218 mg/dL (130-200) H 05/05/18 04:05 LDL Cholesterol Direct 145 mg/dL (0-129) H 05/05/18 04:05 HDL Cholesterol 30 mg/dL (29-60) 05/05/18 04:05 TSH 3rd Generation 2.16 mIU/mL (0.46-4.68) 05/04/18 21:25 - Hospital Course Hospital Course: HPI: Mr. Sanchez is a 68 year old slovak speaking male with a past medical history of bilateral blindness who presents with a chief complaint of chest pain. Patient's son at bedside to assist with HPI/ROS information. He reports that for the past 3-4 months the patient has been experiencing left sided chest pressure with radiation to the left arm with associated SOB after walking two blocks. This pressure is rated 5/10 in intensity and was self limited to 5-6 minutes with rest. Patient also reports that herbal teas and as needed omeprazole have mildly relieved the pain during this time but without lasting effect. Patient denies ever having experienced this in the past. Over the course of the past 5-6 days, however, the patient has been experiencing the pain while at rest as well and also reports that the pain is longer in duration without change in intensity or quality. Of note, patient has never been seen by a doctor, had any surgical procedures or ever been hospitalized in the past. He otherwise denies any recent travel (last flight 6 months ago), recent illness, fevers, chills, headache, neck pain/stiffness, dysphagia, palpitations, lower extremity edema, cough, sputum production, hemoptysis, wheezing, abdominal pain, dyspepsia, N/V/D/C, melena, hematochezia, changes in urine output, skin changes or any numbness/tingling/weakness of any extremity. In the ED, patient was found to have no active disease on chest x-ray but to have an indeterminate troponin at 0.04 as well as sinus tachycardia with non- specific ST-T segment changes on EKG. During the course of admission: Patient was started on aspirin, plavix, statin and lopressor. Cardiology evaluation was appreciated and patient underwent cardiac catheterization today with findings of 99% stenosis of LAD; 2 drug eluting stents were placed and patient is started on Effient. Case was discussed with Dr. Paredes and patient was medically cleared for discharge. Patient is medically stable for discharge to home, as per Dr. Zaragoza. Please take the following medications as prescribed: Aspirin 81 mg PO one time daily Lipitor 40 mg PO one time daily during dinner time Lopressor 25 mg PO twice daily scheduled, 8AM and 6 PM Effient 10 mg PO one time daily As per Cardiology, travel is not recommended at this time. Patient was counselled on smoking cessation. Please follow up at the [facility] within 1 week of discharge for continued care and management. Please do not wait until medications have run out before following up at the clinic, as it is especially important patient remains on Aspirin and Effient uninterrupted. Contact information has been provided below: [facility] [address] [place] [address] If symptoms worsen, please return to the ED. The following is a summary of hospital course. For further detail, please refer to EMR. - Date & Time of H&P Date of H&P: 05/07/18 Time of H&P: 14:57 Discharge Exam - Head Exam Head Exam: ATRAUMATIC, NORMAL INSPECTION, NORMOCEPHALIC - Eye Exam Additional comments: b/l eye blindness - ENT Exam ENT Exam: Mucous Membranes Moist, Normal Exam - Neck Exam Neck exam: Full Rom, Normal Inspection - Respiratory Exam Respiratory Exam: Clear to PA & Lateral, NORMAL BREATHING PATTERN, UNREMARKABLE. absent: Accessory Muscle Use, Rales, Rhonchi, Wheezes, Respiratory Distress, Stridor - Cardiovascular Exam Cardiovascular Exam: REGULAR RHYTHM, +S1, +S2 - GI/Abdominal Exam GI & Abdominal Exam: Normal Bowel Sounds, Soft, Unremarkable. absent: Diste nded, Firm, Guarding, Pulsatile Mass, Rebound, Rigid, Tenderness - Extremities Exam Extremities exam: normal capillary refill, normal inspection, pedal pulses pr esent - Back Exam Back exam: NORMAL INSPECTION - Neurological Exam Neurological exam: Alert, Oriented x3 - Psychiatric Exam Psychiatric exam: Normal Affect, Normal Mood - Skin Skin Exam: Dry, Intact, Normal Color Discharge Plan - Discharge Medications Prescriptions: Aspirin [Ecotrin] 81 mg PO 0800 #30 tabec Atorvastatin [Lipitor] 40 mg PO DIN #30 tab Metoprolol Tartrate [Lopressor] 25 mg PO 0800,1800 #60 tab Prasugrel [Effient] 10 mg PO DAILY #30 tab - Follow Up Plan Condition: STABLE Disposition: HOME/ ROUTINE Instructions: Heart Healthy Diet, Low Cholesterol, Saturated Fat, and Trans Fat Diet , Cardiac Catheterization (DC), Coronary Stenting (DC), Diabetes Diet Additional Instructions: Patient is medically stable for discharge to home, as per Dr. Zaragoza. Please take the following medications as prescribed: Aspirin 81 mg PO one time daily Lipitor 40 mg PO one time daily during dinner time Lopressor 25 mg PO twice daily scheduled, 8AM and 6 PM Effient 10 mg PO one time daily As per Cardiology, travel is not recommended at this time. Please follow up at the [facility] within 1 week of discharge for continued care and management. Please do not wait until medications have run out before following up at the clinic, as it is especially important patient remains on Aspirin and Effient uninterrupted. Contact information has been provided below: [facility] [address] [place] [address] If symptoms worsen, please return to the ED. Referrals: Clinic,Med Surg [Non-Staff] - <Larry Zaragoza - Last Filed: 05/07/18 15:09> Provider - Provider Date of Admission: 05/05/18 15:56 Attending physician: Larry Zaragoza MD Hospital Course - Lab Results Lab Results: Most Recent Lab Values WBC 5.6 10^3/uL (4.5-11.0) 05/07/18 07:00 RBC 5.68 10^6/uL (3.5-6.1) 05/07/18 07:00 Hgb 12.9 g/dL (14.0-18.0) L 05/07/18 07:00 Hct 40.1 % (42.0-52.0) L 05/07/18 07:00 MCV 70.6 fl (80.0-105.0) L 05/07/18 07:00 MCH 22.7 pg (25.0-35.0) L 05/07/18 07:00 MCHC 32.2 g/dl (31.0-37.0) 05/07/18 07:00 RDW 14.6 % (11.5-14.5) H 05/07/18 07:00 Plt Count 160 10^3/uL (120.0-450.0) 05/07/18 07:00 MPV 10.4 fl (7.0-11.0) 05/07/18 07:00 Gran % 58.4 % (50.0-68.0) 05/07/18 07:00 Lymph % (Auto) 26.3 % (22.0-35.0) 05/07/18 07:00 Marshall % (Auto) 12.4 % (1.0-6.0) H 05/07/18 07:00 Eos % (Auto) 2.7 % (1.5-5.0) 05/07/18 07:00 Baso % (Auto) 0.2 % (0.0-3.0) 05/07/18 07:00 Gran # 3.25 (1.4-6.5) 05/07/18 07:00 Lymph # (Auto) 1.5 (1.2-3.4) 05/07/18 07:00 Marshall # (Auto) 0.7 (0.1-0.6) H 05/07/18 07:00 Eos # (Auto) 0.2 (0.0-0.7) 05/07/18 07:00 Baso # (Auto) 0.01 K/mm3 (0.0-2.0) 05/07/18 07:00 PT 11.6 SECONDS (9.4-12.5) 05/04/18 13:30 INR 1.01 05/04/18 13:30 APTT 31.8 Seconds (25.1-36.5) 05/04/18 13:30 Sodium 136 mmol/L (132-148) 05/07/18 07:00 Potassium 4.1 mmol/L (3.6-5.0) 05/07/18 07:00 Chloride 105 mmol/L (98-107) 05/07/18 07:00 Carbon Dioxide 23 mmol/L (21-33) 05/07/18 07:00 Anion Gap 12 (10-20) 05/07/18 07:00 BUN 19 mg/dL (7-21) 05/07/18 07:00 Creatinine 1.0 mg/dl (0.8-1.5) 05/07/18 07:00 Est GFR ( Amer) > 60 05/07/18 07:00 Est GFR (Non-Af Amer) > 60 05/07/18 07:00 POC Glucose (mg/dL) 128 mg/dL (65-110) H 05/07/18 11:38 Random Glucose 111 mg/dL (70-110) H 05/07/18 07:00 Hemoglobin A1c 6.2 % (4.2-6.5) 05/04/18 21:25 Calcium 9.1 mg/dL (8.4-10.5) 05/07/18 07:00 Magnesium 2.1 mg/dL (1.7-2.2) 05/04/18 13:30 Total Bilirubin 0.3 mg/dL (0.2-1.3) 05/04/18 13:30 AST 40 U/L (17-59) 05/04/18 13:30 ALT 53 U/L (7-56) 05/04/18 13:30 Alkaline Phosphatase 85 U/L (38-126) 05/04/18 13:30 Lactate Dehydrogenase 518 U/L (333-699) 05/05/18 04:05 Total Creatine Kinase 751 U/L (35-230) H 05/05/18 04:05 CK-MB (CK-2) 2.6 ng/mL (0.0-3.6) 05/05/18 04:05 CK-MB (CK-2) % Cancelled 05/04/18 13:30 Troponin I 0.06 ng/mL 05/05/18 04:05 NT-Pro-B Natriuret Pep 127 pg/mL (0-450) 05/04/18 13:30 Total Protein 7.8 g/dL (5.8-8.3) 05/04/18 13:30 Albumin 4.4 g/dL (3.0-4.8) 05/04/18 13:30 Globulin 3.4 gm/dL 05/04/18 13:30 Albumin/Globulin Ratio 1.3 (1.1-1.8) 05/04/18 13:30 Triglycerides 255 mg/dL (35-160) H 05/05/18 04:05 Cholesterol 218 mg/dL (130-200) H 05/05/18 04:05 LDL Cholesterol Direct 145 mg/dL (0-129) H 05/05/18 04:05 HDL Cholesterol 30 mg/dL (29-60) 05/05/18 04:05 TSH 3rd Generation 2.16 mIU/mL (0.46-4.68) 05/04/18 21:25 Attending/Attestation - Attestation I have personally seen and examined this patient.: Yes I have fully participated in the care of the patient.: Yes I have reviewed all pertinent clinical information, including history, physical exam and plan: Yes Notes (Text): 05/07/18 15:07 68 year old male with past medical history of bilateral blindness and active tobaccco use who presented with complaint of left sided chest pain. Serial cardiac enzymes have been indeterminate. EKG showed sinus tachycardia with nonspecific ST changes. Patient was started on aspirin, plavix, statin and lopressor. Patient was seen by cardiology and underwent cardiac cath yesterday with findings of 99% stenosis of LAD; 2 GRACIELA were placed and patient was started on effient. Patient is discharged home to follow up at [facility]. Counselled on medication adherence, including aspirin and effient. Counselled on smoking cessation. Above recommendations discussed in detail with son at bedside. Larry Zaragoza MD Hospitalist.
== END 2018-05-07 13:19 | disposition home or self-care (01) | DRG 174 ==
LOC: ED 11:07 → ERH 15:17 → 3RSO 19:53 → OBSVTOIN 05-05 15:56 → 2RSO 05-06 14:43
PROVIDERS: ADMIT Internal Medicine; ATTEND Internal Medicine
PROC: 027034Z Dilation of Coronary Artery, One Artery with Drug-eluting Intraluminal Device, Percutaneous Approach (ICD-10-PCS; principal; 2018-05-06)
PROC: 4A023N7 Measurement of Cardiac Sampling and Pressure, Left Heart, Percutaneous Approach (ICD-10-PCS; 2018-05-06)
PROC: B2151ZZ Fluoroscopy of Left Heart using Low Osmolar Contrast (ICD-10-PCS; 2018-05-06)
PROC: B2111ZZ Fluoroscopy of Multiple Coronary Arteries using Low Osmolar Contrast (ICD-10-PCS; 2018-05-06)
PROC: 3E033PZ Introduction of Platelet Inhibitor into Peripheral Vein, Percutaneous Approach (ICD-10-PCS; 2018-05-06)
DX: I21.4 Non-ST elevation (NSTEMI) myocardial infarction (principal); J44.9 Chronic obstructive pulmonary disease, unspecified; I10 Essential (primary) hypertension; I25.110 Atherosclerotic heart disease of native coronary artery with unstable angina pectoris; E87.6 Hypokalemia; F17.210 Nicotine dependence, cigarettes, uncomplicated; E78.00 Pure hypercholesterolemia, unspecified; H54.3 Unqualified visual loss, both eyes; Z79.82 Long term (current) use of aspirin

== ENCOUNTER 2018-05-13 11:45 | Emergency (ER) | payer MEDICAID ==
[2018-05-13 11:46] VITALS: BMI 25.7
--- NOTE | 2018-05-13 12:42 | ED PDOC ---
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 He denies pain to the area states he came to ED for the swelling. Denies fever, chills, nausea, abdominal pain, chest pain, SOB, diaphoresis, calf pain, any other complaint. 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) - Renal Hx Renal Disorder: No - Endocrine/Metabolic Hx Endocrine Disorders: Yes Hx Diabetes Mellitus Type 1: Yes - Hematological/Oncological Hx Blood Disorders: No - Musculoskeletal/Rheumatological Hx Falls: No - Gastrointestinal Hx Gastrointestinal Disorders: No - Psychiatric Hx Psychophysiologic Disorder: No Hx Substance Use: No - Surgical History Hx Cardiac Catheterization: Yes (05/06/18) Hx Coronary Stent: Yes Family/Social History - Physician Review Nursing Documentation Reviewed: Yes Family/Social History: Unknown Family HX Smoking Status: Current Some Days Smoker Hx Alcohol Use: No Hx Substance Use: No Allergies/Home Meds Allergies/Adverse Reactions: Allergies No Known Allergies Allergy (Verified 05/04/18 11:31) Review of Systems - Physician Review All systems were reviewed & negative as marked: Yes - Review of Systems Constitutional: Normal Eyes: Normal ENT: Normal Respiratory: Normal Cardiovascular: Normal Gastrointestinal: Normal Genitourinary Male: Other (Right groin pain) Musculoskeletal: Normal Skin: Normal Neurological: Normal Endocrine: Normal Hemo/Lymphatic: Normal Psychiatric: Normal Physical Exam Vital Signs Reviewed: Yes Temperature: Afebrile Blood Pressure: Normal Pulse: Regular Respiratory Rate: Normal Appearance: Positive for: Well-Appearing, Non-Toxic, Comfortable Pain Distress: None Mental Status: Positive for: Alert and Oriented X 3 - Systems Exam Head: Present: Atraumatic, Normocephalic Pupils: Present: PERRL Extroacular Muscles: Present: EOMI Conjunctiva: Present: Normal Mouth: Present: Moist Mucous Membranes Neck: Present: Normal Range of Motion Respiratory/Chest: Present: Clear to Auscultation, Good Air Exchange. No: Respiratory Distress, Accessory Muscle Use Cardiovascular: Present: Regular Rate and Rhythm, Normal S1, S2. No: Murmurs Abdomen: No: Tenderness, Distention, Peritoneal Signs Genitourinary Male: Present: Other (Right groin area mild swelling with induration and overlaying ecchymosis. No TTP.) Back: Present: Normal Inspection Upper Extremity: Present: Normal Inspection. No: Cyanosis, Edema Lower Extremity: Present: Normal Inspection. No: Edema Neurological: Present: GCS=15, CN II-XII Intact, Speech Normal Skin: Present: Warm, Dry, Normal Color. No: Rashes Psychiatric: Present: Alert, Oriented x 3, Normal Insight, Normal Concentration Medical Decision Making ED Course and Treatment: 05/13/18 14:44 68yo male who present with complaint of feeling lump to his right groin area s/p cardiac cath on 05/06/18. Pt had no tenderness and femoral pulse was intact Arterial US - Preliminary result per the tech was reported as small hematoma Case was DW Dr. Paredes who agreed that pt should be DC home Result was DW both pt and the son. The son states pt was advised to apply ice to the area s/p the procedure but he never did. He as advised to apply ice to the area and keep the area elevated. Advised to f/u with Dr. Paredes. - RAD Interpretation Radiology Orders: 05/13/18 12:31 DUPLEX LOWER EXTRM ARTR LEFT [US] Stat Disposition/Present on Arrival - Present on Arrival Any Indicators Present on Arrival: No History of DVT/PE: No History of Uncontrolled Diabetes: No Urinary Catheter: No History of Decub. Ulcer: No History Surgical Site Infection Following: None - Disposition Have Diagnosis and Disposition been Completed?: Yes Diagnosis: Hematoma Disposition: HOME/ ROUTINE Disposition Time: 14:10 Patient Plan: Discharge Condition: STABLE Discharge Instructions (ExitCare): Contusion (DC) Additional Instructions: Apply ice to area and keep area elevated Follow up with Dr. Paredes Return to ED for any new or worsening symptoms Referrals: Norman Paredes MD [Staff Provider] - Follow up with primary Forms: [employer] ([place]ian)
[2018-05-13 13:50] VITALS: TEMP 97.8
[2018-05-13 14:23] VITALS: BP 134/76; PULSE 86; RESP 18; O2SAT 98
--- NOTE | 2018-05-13 16:36 | US ---
PROCEDURE: Duplex arterial ultrasound of the right groin. HISTORY: Recent cardiac catheterization. Pain and pulsatile mass in the right groin. Evaluate for pseudoaneurysm or fistula. PHYSICIAN(S): Norman Hameed MD. FINDINGS: The right common femoral artery is patent with a normal triphasic waveform. No sonographic evidence of a pseudoaneurysm or AV fistula is seen. The right superficial femoral artery and profunda femoral artery are patent proximally. The visualized venous segments the right groin are patent and compressible. There is a small 2.4 cm hematoma in the right groin. IMPRESSION: 1. No sonographic evidence for pseudoaneurysm or AV fistula in the right groin.
== END 2018-05-13 14:26 | disposition home or self-care (01) ==
LOC: ED 11:45
DX: S30.1XXA Contusion of abdominal wall, initial encounter (principal); Y84.0 Cardiac catheterization as the cause of abnormal reaction of the patient, or of later complication, without mention of misadventure at the time of the procedure; Y92.89 Other specified places as the place of occurrence of the external cause; I25.10 Atherosclerotic heart disease of native coronary artery without angina pectoris; I10 Essential (primary) hypertension; F17.210 Nicotine dependence, cigarettes, uncomplicated